=== PATIENT | female | born 1985 | race Two or more races ===

== ENCOUNTER 2023-01-28 22:10 | Emergency (ER) | payer MEDICAID, OTHER ==
[~2023-01-28] VITALS: Ht 170.2 cm; Wt 76.3 kg
[2023-01-28] MEDS ORDERED: MORPHINE SULFATE 4 MG/ML SYR/VIAL IV ONE (23:45)
[2023-01-28] MEDS ORDERED: ONDANSETRON HCL 4 MG/2 ML VIAL IV ONE (23:45)
[2023-01-29] MEDS: ONDANSETRON HCL 4 MG/2 ML VIAL IV PRN ×2 (06:52→17:07)
[2023-01-29] MEDS: MORPHINE SULFATE 4 MG/ML SYR/VIAL IV PRN ×2 (06:54→17:10)
[2023-01-29 17:10] VITALS: BP 133/85
== END 2023-01-29 17:59 | disposition short-term general hospital (02) ==
LOC: ER 22:14
DX: S72.111A Displaced fracture of greater trochanter of right femur, initial encounter for closed fracture (principal); W22.8XXA Striking against or struck by other objects, initial encounter; Y93.89 Activity, other specified; Y92.89 Other specified places as the place of occurrence of the external cause; Y99.8 Other external cause status; Z91.040 Latex allergy status; Z98.890 Other specified postprocedural states
CPT/HCPCS: 71045; 73700; 96374; 96375; 96376; 99285; J2270; J2405

== ENCOUNTER 2025-08-15 00:31 | Inpatient (IN) | payer MEDICAID, OTHER ==
[~2025-08-15] VITALS: Ht 162.6 cm; Wt 84.5 kg
--- NOTE | 2025-08-15 00:49 | ED.PDOC ---
HPI Comments HPI: Poor Historian. 40-year-old female presents to emergency department for one day history of nonspecific midsternal chest discomfort. Patient points with the hands that the pain is in her sternum and points to her epigastric and right upper quadrant area as well. Patient had an episode of nausea and vomiting nonbilious nonbloody shortly prior to arriving to the ED. Denies any other acute symptoms. Past Medical History: Denies any Past Surgical History: Tonsillectomy, breast augmentation, umbilical hernia repair, hip surgery REVIEW OF SYSTEMS: CONSTITUTIONAL: Denies acute: fever, diaphoresis, chills, generalized weakness. HEAD: Denies acute: headache, photophobia Eyes: Denies acute: Double vision, vision loss, eye pain, eye discharge. EARS: Denies acute: tinnitus, hearing loss, ear discharge, ear pain, THROAT: Denies acute: sore throat, swelling, difficulty swallowing , pain with swallowing, change in voice. NECK: Denies acute: neck pain, neck swelling, stiff neck. HEART: Denies acute : palpitations, LUNGS: Denies acute: SOB, wheezing, cough, hemoptysis ABDOMEN: Denies acute: , diarrhea, melena , hematemesis, hematochezia SKIN: Denies acute: rash, redness, lesions, itchiness. EXTREMITIES: Denies acute: calf pain, numbness, tingling, weakness, denies pain in extremity. Denies acute: Low back pain. Neuro: Denies acute: focal neurological deficit, motor or sensory focal neurological deficit, tremors, seizure like activity, confusion, dizziness, change in mental status, loss of bowel or bladder function, cauda equina like symptoms. : Denies acute: dysuria, hematuria, flank pain, increase in urinary frequency. PSYCH: Denies acute: hallucination, suicidal ideation, homicidal ideation. FEMALE: Denies acute: abnormal vaginal bleeding, foul odor, unusual discharge. PHYSICAL EXAM: General: ----mild---acute distress, awake and alert. Head: normocephalic, atraumatic. No raccoon's eyes, no brooks sign. Neck: supple, trachea is midline, no swelling. Throat: Normal phonation. Eyes:, no erythema, no purulent discharge, no proptosis, no icterus. Heart: regular rate, regular rhythm, no significant murmur appreciated. Lungs: no apparent respiratory distress, Able to speak in full sentences. No wheezing, no rhonchi, no crackles. No stridors Clear to auscultation bilaterally. Abdomen: Epigastric and mild right upper quadrant tender to palpation, non distended, soft, no guarding, no rebound, + bowel sounds. Neuro: Awake, Alert, oriented to name, self, situation, follows commands GCS=15. Speech is normal. Skin: no petechia, no purpura, no cyanosis, non-pale, not jaundice. Lower extremities: --no - Pitting edema no deformity, no focal swelling, no calf TTP. Makes eye contact. moves all four extremities. Face: no apparent facial droop. Ambulating in the ED independently. ED COURSE: DISCLAIMER: This medical document was created using an electronic medical record system with voice recognition software and computerized dictation system. Although this document has been carefully reviewed, there might still be some phonetic and typographical errors. Occasional wrong-word or "sound-alike" substitutions may have occurred due to the inherent limitations of voice recognition software. These areas are purely typographical due to imperfections of the software programs and do not reflect any compromise in the patient's medical care. Please read the chart carefully and recognize, using context, where these substitutions have occurred. 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 History Family History Family History: Reviewed,noncontributory to illness Social History Smoker: Non-Smoker Alcohol: Occasionally Drugs: Denies Drug Use Lives In: Home X-Ray, Labs, Meds, VS Vital Signs Date Time Temp Pulse Resp B/P (MAP) Pulse Ox O2 Delivery O2 Flow Rate FiO2 08/15/25 02:50 55 16 139/89 (106) 99 08/15/25 02:00 56 08/15/25 01:12 Room Air* 0 21 08/15/25 01:10 98.6 58 16 113/92 (99) 97 98.6 08/15/25 00:40 51 08/15/25 00:34 97.9 53 18 159/109 97 97.9 Lab Test 08/15/25 01:37 08/15/25 00:49 Range/Units Troponin I High Sensitivity < 3 L < 3 L </=34 ng/L White Blood Count 10.3 4.4-10.8 10^3/uL Red Blood Count 4.65 4.0-5.20 10^6/uL Hemoglobin 11.2 L 12.2-16.2 g/dL Hematocrit 34.9 L 36.0-46.0 % Mean Corpuscular Volume 75.1 L 80.0-100.0 fL Mean Corpuscular Hemoglobin 24.2 L 28.0-32.0 pg Mean Corpuscular Hemoglobin Concent 32.2 32.0-36.0 g/dL Red Cell Distribution Width 14.3 11.8-14.3 % Platelet Count 356 140-450 10^3/uL Mean Platelet Volume 7.0 6.9-10.8 fL Neutrophils (%) (Auto) 65.7 37.0-80.0 % Lymphocytes (%) (Auto) 24.7 10.0-50.0 % Monocytes (%) (Auto) 7.6 0.0-12.0 % Eosinophils (%) (Auto) 1.7 0.0-7.0 % Basophils (%) (Auto) 0.3 0.0-2.0 % Neutrophils # (Auto) 6.7 1.6-8.6 10 ^3/uL Lymphocytes # (Auto) 2.5 0.4-5.4 10 ^3/uL Monocytes # (Auto) 0.8 0-1.3 10 ^3/uL Eosinophils # (Auto) 0.2 0-0.8 10 ^3/uL Basophils # (Auto) 0 0-0.2 10 ^3/uL Nucleated Red Blood Cells 0.1 % Urine Color Colorless Yellow Urine Clarity Turbid H Clear Urine pH 5.0 5.0-9.0 Urine Specific [place] 1.021 1.001-1.035 Urine Protein Negative Negative Urine Ketones Negative Negative Urine Blood 3+ H Negative /uL Urine Nitrite Negative Negative Urine Bilirubin Negative Negative Urine Urobilinogen Normal Negative mg/dL Urine Leukocyte Esterase Negative Negative /uL Urine RBC 538 0 - 4 /hpf Urine Microscopic WBC 5 0-5 /HPF Urine Squamous Epithelial Cells Few <5 /hpf Urine Bacteria None seen None Seen /hpf Urine Yeast (Budding) Few None Seen /hpf Urine Glucose Normal Normal mg/dL Sodium Level 143 136-145 mmol/L Potassium Level 4.1 3.5-5.1 mmol/L Chloride Level 107 98-107 mmol/L Carbon Dioxide Level 29 20-31 mmol/L Anion Gap 7 5-15 Blood Urea Nitrogen 17 9-23 mg/dL Creatinine 0.73 0.550-1.02 mg/dL Glomerular Filtration Rate Calc 105 >90 mL/min BUN/Creatinine Ratio 23.3 H 10.0-20.0 Serum Glucose 100 74-106 mg/dL Lactic Acid Level 0.7 0.4-2.0 mmol/L Calcium Level 10.3 8.7-10.4 mg/dL Total Bilirubin 0.4 0.2-1.0 mg/dL Aspartate Amino Transferase (AST) 21 13-40 U/L Alanine Aminotransferase (ALT) 22 7-40 U/L Alkaline Phosphatase 82 46-116 U/L Total Protein 7.1 5.7-8.2 g/dL Albumin 4.2 3.2-4.8 g/dL Lipase 45 12-53 U/L Current Medications Medications (Trade) Dose Ordered Sig/Marybeth Route Start Time Stop Time Status Last Admin Sucralfate (Carafate Tab) 1 gm ONCE ONCE PO 08/15/25 01:00 08/15/25 01:01 DC 08/15/25 01:08 Pantoprazole Sodium (Protonix Tablet) 40 mg ONCE ONCE PO 08/15/25 01:00 08/15/25 01:01 DC 08/15/25 01:08 Lidocaine HCl (Xylocaine 2% Viscous) 10 ml ONCE ONCE PO 08/15/25 01:00 08/15/25 01:01 DC 08/15/25 01:[address] [address] Ph: [phone] DIAGNOSTIC IMAGING Diagnostic Imaging Report : [id number] Signed PATIENT: KARLO SOSA DENROSANNEACCT: [id number] UNIT: [id number] : 1985 LOC: ER ROOM / BED: / AGE / SEX: 40 / F ADM STATUS: REG ER SERVICE 003 ORDERING PHYSICIAN: TYLER MERLOS MD PROCEDURE(s): CXRP - CHEST PORTABLE REASON: CP ORDER NUMBER(s): [id number], ACCESSION NUMBER(s): [id number] CHEST RADIOGRAPH INDICATION: CP TECHNIQUE: Single frontal view of the chest was obtained COMPARISON: XY CHEST PORTABLE on DOS: 01/28/23 FINDINGS: Lines and Tubes: None Lungs: Clear Pleura: No effusion. No pneumothorax. Cardiomediastinal contours: Unremarkable Bones: Unremarkable IMPRESSION: 1. No acute disease. ATED BY: ARTEMIO ZAVALA MD DICTATED DATE/TIME: 08/15/25225 SIGNED BY: ARTEMIO ZAVALA MD SIGNED DATE/TIME: 08/15/25225 CC: Departure 1 Departure Time of Disposition: 03:06 Impression: Primary Impression: Chest pain Disposition: ADMITTED INPATIENT Condition: Guarded e-Prescriptions Pantoprazole Sodium Sesquihydr (Pantoprazole Sodium) 40 Mg Tab 40 MG PO DAILY@0600 for 30 Days, #30 TAB Prov: JOHANNE TALAMANTES RESIDENT 08/15/25 Discharged With: Self I personally scribed for GLADIS DEVINE DO ([email or web address]) on 08/15/25 at 15:56. Electronically submitted by Abimbola Holt ([email or web address]). I personally scribed for GLADIS DEVINE DO ([email or web address]) on 08/15/25 at 18:12. Electronically submitted by Abimbola Holt ([email or web address]). GLADIS DEVINE DO Aug 15, 2025 00:49
[2025-08-15] MEDS: SUCRALFATE 1 GM TAB PO ONE (01:08)
[2025-08-15] MEDS: LIDOCAINE VISCOUS 2% 15ML UD PO ONE (01:08)
[2025-08-15] MEDS: PANTOPRAZOLE 40 MG TAB PO ONE (01:08)
[2025-08-15 01:27] LABS: Nucleated Red Blood Cells % 0.1 %
[2025-08-15 01:29] LABS: Hematocrit 34.9 % (36.0-46.0); Hemoglobin 11.2 g/dL (12.2-16.2); Mean Corpuscular Hemoglobin 24.2 pg (28.0-32.0); Mean Corpuscular Volume 75.1 fL (80.0-100.0)
[2025-08-15 01:35] LABS: Alanine Aminotransferase 22 U/L (7-40); Albumin 4.2 g/dL (3.2-4.8); Alkaline Phosphatase 82 U/L (46-116); Anion Gap 7 (5-15); BUN/Creatinine Ratio 23.3 (10.0-20.0); Bilirubin, Total 0.4 mg/dL (0.2-1.0); Blood Urea Nitrogen 17 mg/dL (9-23); Calcium 10.3 mg/dL (8.7-10.4); Carbon Dioxide 29 mmol/L (20-31); Chloride 107 mmol/L (98-107); Glucose 100 mg/dL (74-106); Lipase 45 U/L (12-53); Potassium 4.1 mmol/L (3.5-5.1); Sodium 143 mmol/L (136-145); Total Protein 7.1 g/dL (5.7-8.2)
[2025-08-15 02:01] LABS: Urine Budding Yeast FEW /hpf (None Seen); Urine Protein, UAD Negative (Negative)
--- NOTE | 2025-08-15 02:01 | ECG ---
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
--- NOTE | 2025-08-15 02:28 | DVH ---
CHEST RADIOGRAPH INDICATION: CP TECHNIQUE: Single frontal view of the chest was obtained COMPARISON: XY CHEST PORTABLE on DOS: 01/28/23 FINDINGS: Lines and Tubes: None Lungs: Clear Pleura: No effusion. No pneumothorax. Cardiomediastinal contours: Unremarkable Bones: Unremarkable IMPRESSION: 1. No acute disease.
[2025-08-15] MEDS: NITROGLYCERIN 0.4 MG SL TAB SL ONE (03:24)
--- NOTE | 2025-08-15 03:44 | ECG ---
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
[2025-08-15 04:31] VITALS: PULSE 52; RESP 17; O2SAT 99
[2025-08-15] MEDS ORDERED: ONDANSETRON HCL 4 MG/2 ML VIAL IV PRN ×2 (05:00→05:15)
[2025-08-15] MEDS ORDERED: MORPHINE SULFATE INJ 2 MG/ml SYRG IV PRN ×2 (05:00→05:15)
[2025-08-15] MEDS ORDERED: NITROGLYCERIN 0.4 MG SL TAB SL PRN ×2 (05:00→05:15)
[2025-08-15] MEDS: ENOXAPARIN SOD 40 MG/0.4 ML SYRINGE SC ONE (05:15)
--- NOTE | 2025-08-15 05:20 | DVHHPRES ---
History of Present Illness Resident Creating Document: LEO YUSUF RESIDENT History of Present Illness This is a 41-year-old lady with past medical history of hypertension came to hospital due to chest pain for 1 day. She reports the pain substernal, radiating to the neck and right upper quadrant, squeezing in nature, 8/10 in intensity, worsening with lying on bed with no clear exacerbating factor. She also reports of nausea and vomiting. She denies fever, shortness of breaths, cough, or any recent chest/abdominal trauma. PMHx: Hypertension PSHx: No significant Family history: Mom had premature coronary artery disease (had heart attack at 30s) Social history: Denies smoking, drank occasionally, denies any other drug use. Home medication: Takes lisinopril off/on for blood pressure Allergic history: Lasix Patient seen and examined at the bedside. Patient is still complaining of chest pain. Review of Systems Review of Systems General: patient denies fever, fatigue, weaknes, sweating, any recent changes in appetite and weight HEENT: No headaches, visiual changes, hearing loss, tinnitus, nasal congestion and discharge, and sore throat. Cardiovascular reports chest pain Respiratory: No cough, and wheezing. Gastrointestinal: Reports nausea and vomiting Genitourinary: No dysuria, hematuria, discharge, frequency, urgency, nocturia, incontinence, and urinary retention. Endocrine: No heat or cold intolerance, polydipsia, polyuria, and polyphagia. Neurological: No dizziness, extremity weakness and numbness, tremors, gait disturbance, seizures, and memory impairment. Psychiatric: Denies depression, anxiety,or insomnia. Musculoskeletal: Denies neck pain, stiffness and swelling, back pain, muscle weakness, joint pain, stiffness, swelling, or limited range of motion. Skin: No rashes, itching, skin lesion, changes in hair, nail, skin texture and breast. Hematologic/Lymphatic: Denies easy bruising, bleeding tendencies, or lymph node enlargement. Allergies: Coded Allergies: Latex (Verified Allergy, Unknown, 01/28/23) Exam Vital Signs Vital Signs Date Time Temp Pulse Resp B/P (MAP) Pulse Ox O2 Delivery O2 Flow Rate FiO2 08/15/25 04:35 137/95 08/15/25 04:31 52 17 99 Room Air* 0 21 08/15/25 04:18 98.7 98.7 Exam General Appearance: Alert, Oriented X3, Cooperative, No acute distress HEENT: Atraumatic, PERRLA, EOMI, Mucous membrane moist/pink Respiratory: Clear to auscultation, Normal air movement Cardiovascular: Regular rate, Normal S1, Normal S2, No murmurs, no chest wall tenderness Abdominal: Normal bowel sounds, Soft, No tenderness, No hepatospenomegaly, No masses Extremities: No clubbing, No cyanosis, No edema, Normal pulses, No tenderness/swelling Skin: No rashes, No breakdown, No significant lesion Neuro: Normal gait, Normal speech, Strength at 5/5 X4 ext, Normal tone, Sensation intact, Cranial nerves 3-12 NL, Reflexes 2+ Psych/Mental Status: Mental status NL, Mood NL Labs/Xrays Labs Test 08/15/25 03:41 08/15/25 00:49 Range/Units Troponin I High Sensitivity < 3 L </=34 ng/L White Blood Count 10.3 4.4-10.8 10^3/uL Red Blood Count 4.65 4.0-5.20 10^6/uL Hemoglobin 11.2 L 12.2-16.2 g/dL Hematocrit 34.9 L 36.0-46.0 % Mean Corpuscular Volume 75.1 L 80.0-100.0 fL Mean Corpuscular Hemoglobin 24.2 L 28.0-32.0 pg Mean Corpuscular Hemoglobin Concent 32.2 32.0-36.0 g/dL Red Cell Distribution Width 14.3 11.8-14.3 % Platelet Count 356 140-450 10^3/uL Mean Platelet Volume 7.0 6.9-10.8 fL Neutrophils (%) (Auto) 65.7 37.0-80.0 % Lymphocytes (%) (Auto) 24.7 10.0-50.0 % Monocytes (%) (Auto) 7.6 0.0-12.0 % Eosinophils (%) (Auto) 1.7 0.0-7.0 % Basophils (%) (Auto) 0.3 0.0-2.0 % Neutrophils # (Auto) 6.7 1.6-8.6 10 ^3/uL Lymphocytes # (Auto) 2.5 0.4-5.4 10 ^3/uL Monocytes # (Auto) 0.8 0-1.3 10 ^3/uL Eosinophils # (Auto) 0.2 0-0.8 10 ^3/uL Basophils # (Auto) 0 0-0.2 10 ^3/uL Nucleated Red Blood Cells 0.1 % Urine Color Colorless Yellow Urine Clarity Turbid H Clear Urine pH 5.0 5.0-9.0 Urine Specific [place] 1.021 1.001-1.035 Urine Protein Negative Negative Urine Ketones Negative Negative Urine Blood 3+ H Negative /uL Urine Nitrite Negative Negative Urine Bilirubin Negative Negative Urine Urobilinogen Normal Negative mg/dL Urine Leukocyte Esterase Negative Negative /uL Urine RBC 538 0 - 4 /hpf Urine Microscopic WBC 5 0-5 /HPF Urine Squamous Epithelial Cells Few <5 /hpf Urine Bacteria None seen None Seen /hpf Urine Yeast (Budding) Few None Seen /hpf Urine Glucose Normal Normal mg/dL Sodium Level 143 136-145 mmol/L Potassium Level 4.1 3.5-5.1 mmol/L Chloride Level 107 98-107 mmol/L Carbon Dioxide Level 29 20-31 mmol/L Anion Gap 7 5-15 Blood Urea Nitrogen 17 9-23 mg/dL Creatinine 0.73 0.550-1.02 mg/dL Glomerular Filtration Rate Calc 105 >90 mL/min BUN/Creatinine Ratio 23.3 H 10.0-20.0 Serum Glucose 100 74-106 mg/dL Lactic Acid Level 0.7 0.4-2.0 mmol/L Calcium Level 10.3 8.7-10.4 mg/dL Total Bilirubin 0.4 0.2-1.0 mg/dL Aspartate Amino Transferase (AST) 21 13-40 U/L Alanine Aminotransferase (ALT) 22 7-40 U/L Alkaline Phosphatase 82 46-116 U/L Total Protein 7.1 5.7-8.2 g/dL Albumin 4.2 3.2-4.8 g/dL Lipase 45 12-53 U/L SEPSIS Sepsis Screen Date sepsis recognized/suspect: Aug 15, 2025 Time Sepsis recognized/suspect: 417 Recent Procedure: No On Antibiotic Therapy: No Respiratory Rate >20: No Heart Rate >90: No Temp<36 C (96.8 F) or >38.3 C: No SBP <90 or MAP <65 mmHG: Yes New Acute Mental Status Change: No Is the patient on CPAP, BIPAP,: No Physician Orders Chest Portable (08/15/25 00:39) Electrocardigram (08/15/25 03:39) Urine (08/15/25 ) Appeals Writer (08/15/25 ) Admit (08/15/25 04:59) Code Status (08/15/25 04:59) 2 Gm Sodium Diet (08/15/25 Breakfast) Echo 2d Mode Cardiac Dop (08/15/25 04:59) Oxygen By Nasal Cannula (08/15/25 04:59) Nitroglycerin Sublingual (Ntrostat Subli (08/15/25 05:00) Vital Signs Date Time Temp Pulse Resp B/P (MAP) Pulse Ox O2 Delivery O2 Flow Rate FiO2 08/15/25 04:35 137/95 08/15/25 04:31 52 17 99 Room Air* 0 21 08/15/25 04:18 98.7 57 14 146/92 (110) 99 98.7 08/15/25 04:01 65 08/15/25 03:43 51 08/15/25 03:24 139/89 08/15/25 02:50 55 16 139/89 (106) 99 08/15/25 02:00 56 08/15/25 01:12 Room Air* 0 21 08/15/25 01:10 98.6 58 16 113/92 (99) 97 98.6 08/15/25 00:40 51 08/15/25 00:34 97.9 53 18 159/109 97 97.9 Laboratory Tests Test 08/15/25 00:49 Lactic Acid Level 0.7 mmol/L (0.4-2.0) White Blood Count 10.3 10^3/uL (4.4-10.8) Medications Medications Dose Ordered Sig/Marybeth Route Start Time Stop Time Status Last Admin Dose Admin Lidocaine HCl 10 ml ONCE ONCE PO 08/15/25 01:00 08/15/25 01:01 DC 08/15/25 01:08 10 ML Nitroglycerin 0.4 mg ONCE ONCE SL 08/15/25 02:45 08/15/25 03:06 DC 08/15/25 03:24 0.4 MG Pantoprazole Sodium 40 mg ONCE ONCE PO 08/15/25 01:00 08/15/25 01:01 DC 08/15/25 01:08 40 MG Sucralfate 1 gm ONCE ONCE PO 08/15/25 01:00 08/15/25 01:01 DC 08/15/25 01:08 1 GM Assessment/Plan Assessment/Plan Possible unstable angina Chest pain, due to above Tension Medication nonadherence Obesity Serum Questionable ear infection Family history of premature coronary artery disease * EKGs shows sinus bradycardia with no significant ST or T-wave changes * Serial trop I is within normal limits Plan/recommendation: * Aspirin and atorvastatin * Pain management * Check echocardiogram * Lipid profile, TSH and UDS DIET: Cardiac diet DVT PROPHYLAXIS: Lovenox GI PROPHYLAXIS:: Protonix CODE STATUS: Goal of care discussed for more than 18 minutes, full code DISPOSITION: Telemetry Patient's status and plan discussed with the patient. Case discussed with Dr. Myers. Plan discussed with: Patient, Other My Orders Orders - LEO YUSUF Procedure Category Date Status Time Admit ADMIT 08/15/25 Transmitted 04:59 Code Status CODE 08/15/25 Transmitted 04:59 2 Gm Sodium Diet DIET 08/15/25 Transmitted Breakfast Echo 2d Mode Cardiac US 08/15/25 Logged DOP 04:59 Oxygen By Nasal RT 08/15/25 Transmitted Cannula 04:59 Nitroglycerin PHA 08/15/25 In Process Sublingual (Ntrostat 05:00 Visit Coding STANDARD RES Billing Provider: ANDREA MYERS MD Date of Service if different f: Aug 15, 2025 Common Visit Codes: 65963-JRHTCOW INP/OBS CARE (HIGH) Secondary Visit Codes: 55183-QUINANQV CARE PLAN 30 MINUTES LEO YUSUF Aug 15, 2025 05:20
[2025-08-15] MEDS: ATORVASTATIN 20 MG TAB PO ONE (05:47)
[2025-08-15] MEDS ORDERED: ACETAMINOPHEN 325 MG TAB PO SCH (06:00)
[2025-08-15] MEDS: ACETAMINOPHEN 325 MG TAB PO SCH (06:00)
[2025-08-15] MEDS: PANTOPRAZOLE 40 MG TAB PO SCH (06:25)
[2025-08-15 11:02] VITALS: BP 135/83; PULSE 66; RESP 16; TEMP 98.3; O2SAT 99
[2025-08-15 13:00] VITALS: BP 127/84; PULSE 67; RESP 16; TEMP 98.2; O2SAT 98
--- NOTE | 2025-08-15 13:53 | DVHDSRES ---
Discharge Summary Date of Admission Resident Creating Document: JOHANNE TALAMANTES RESIDENT Aug 15, 2025 at 04:59 Date of Discharge: Aug 15, 2025 Admitting Diagnosis Chest pain Labs/Diagnostic Data: Laboratory Results Test 08/15/25 03:41 08/15/25 00:49 Magnesium Level 2.0 mg/dL (1.6-2.6) Troponin I High Sensitivity < 3 ng/L (</=34) White Blood Count 10.3 10^3/uL (4.4-10.8) Red Blood Count 4.65 10^6/uL (4.0-5.20) Hemoglobin 11.2 g/dL (12.2-16.2) Hematocrit 34.9 % (36.0-46.0) Mean Corpuscular Volume 75.1 fL (80.0-100.0) Mean Corpuscular Hemoglobin 24.2 pg (28.0-32.0) Mean Corpuscular Hemoglobin Concent 32.2 g/dL (32.0-36.0) Red Cell Distribution Width 14.3 % (11.8-14.3) Platelet Count 356 10^3/uL (140-450) Mean Platelet Volume 7.0 fL (6.9-10.8) Neutrophils (%) (Auto) 65.7 % (37.0-80.0) Lymphocytes (%) (Auto) 24.7 % (10.0-50.0) Monocytes (%) (Auto) 7.6 % (0.0-12.0) Eosinophils (%) (Auto) 1.7 % (0.0-7.0) Basophils (%) (Auto) 0.3 % (0.0-2.0) Neutrophils # (Auto) 6.7 10 ^3/uL (1.6-8.6) Lymphocytes # (Auto) 2.5 10 ^3/uL (0.4-5.4) Monocytes # (Auto) 0.8 10 ^3/uL (0-1.3) Eosinophils # (Auto) 0.2 10 ^3/uL (0-0.8) Basophils # (Auto) 0 10 ^3/uL (0-0.2) Nucleated Red Blood Cells 0.1 % Urine Color Colorless (Yellow) Urine Clarity Turbid (Clear) Urine pH 5.0 (5.0-9.0) Urine Specific [place] 1.021 (1.001-1.035) Urine Protein Negative (Negative) Urine Ketones Negative (Negative) Urine Blood 3+ /uL (Negative) Urine Nitrite Negative (Negative) Urine Bilirubin Negative (Negative) Urine Urobilinogen Normal mg/dL (Negative) Urine Leukocyte Esterase Negative /uL (Negative) Urine RBC 538 /hpf (0 - 4) Urine Microscopic WBC 5 /HPF (0-5) Urine Squamous Epithelial Cells Few /hpf (<5) Urine Bacteria None seen /hpf (None Seen) Urine Yeast (Budding) Few /hpf (None Seen) Urine Glucose Normal mg/dL (Normal) Urine Test Negative (Negative) Sodium Level 143 mmol/L (136-145) Potassium Level 4.1 mmol/L (3.5-5.1) Chloride Level 107 mmol/L (98-107) Carbon Dioxide Level 29 mmol/L (20-31) Anion Gap 7 (5-15) Blood Urea Nitrogen 17 mg/dL (9-23) Creatinine 0.73 mg/dL (0.550-1.02) Glomerular Filtration Rate Calc 105 mL/min (>90) BUN/Creatinine Ratio 23.3 (10.0-20.0) Serum Glucose 100 mg/dL (74-106) Lactic Acid Level 0.7 mmol/L (0.4-2.0) Calcium Level 10.3 mg/dL (8.7-10.4) Total Bilirubin 0.4 mg/dL (0.2-1.0) Aspartate Amino Transferase (AST) 21 U/L (13-40) Alanine Aminotransferase (ALT) 22 U/L (7-40) Alkaline Phosphatase 82 U/L (46-116) B-Type Natriuretic Peptide 54.55 pg/mL (0-100) Total Protein 7.1 g/dL (5.7-8.2) Albumin 4.2 g/dL (3.2-4.8) Lipase 45 U/L (12-53) Other Laboratory Tests 08/15/25 00:49 Brief Hx & Hospital Course: This is a 41-year-old lady with past medical history of hypertension came to hospital due to chest pain for 1 day. She reports the pain substernal, radiating to the neck and right upper quadrant, squeezing in nature, 8/10 in intensity, worsening with lying on bed with no clear exacerbating factor. She also reports of nausea and vomiting. She denies fever, shortness of breaths, cough, or any recent chest/abdominal trauma. Patient required hospital admission for further evaluation and management of chest pain. So year EKG showed normal sinus rhythm, no ST changes and echocardiogram performed and troponins were negative BNP was within normal limit. Patient condition was likely from GERD avoid patient condition was improved, hemodynamically stable and in condition to be discharged home with healthy lifestyle modifications including diet and exercise. This has been discussed with the patient and agreed with the plan. Visit VD pain persists recurrent. General Appearance: Alert, Oriented X3, Cooperative, No acute distress HEENT: Atraumatic, PERRLA, EOMI, Mucous membrane moist/pink Respiratory: Clear to auscultation, Normal air movement Cardiovascular: Regular rate, Normal S1, Normal S2, No murmurs, no chest wall tenderness Abdominal: Normal bowel sounds, Soft, No tenderness, No hepatospenomegaly, No masses Extremities: No clubbing, No cyanosis, No edema, Normal pulses, No tenderness/swelling Skin: No rashes, No breakdown, No significant lesion Neuro: Normal gait, Normal speech, Strength at 5/5 X4 ext, Normal tone, Sensation intact, Cranial nerves 3-12 NL, Reflexes 2+ Psych/Mental Status: Mental status NL, Mood NL Condition at Discharge: Stable Final Diagnosis/Problems List Musculoskeletal chest pain and GERD Ruled out Unstable angina Chest pain,Ruled out ACS Medication nonadherence Obesity I Questionable ear infection Family history of premature coronary artery disease Discharge Disposition: Home Discharge Instruct/Medications Diet: Regular Activity: No Restrictions, As Tolerated Follow Up/Referral: PCP and Cardiology in outpatient Medications: Per EMR Discharge Statement: "Patient was advised to return to the ER or call 911 if any headaches, dizziness, shortness of breath, chest pain, abdominal pain, bleeding, fevers, or worsening of medical condition. Patient was counseled about treatment plan, medications, possible side effects, patientverbalized understanding. All questions were answered to the best of my ability. This discharge took greater then 30 minutes in planning, reviewing documentation, counseling the patient, and discussing with other team members." ASSESSMENT ASSESSMENT Assessment Chest pain, rule out ACS, likely from musculoskeletal/GERD Obesity type 1 Visit Coding STANDARD RES Billing Provider: CLARENCE SOLORIO MD Date of Service if different f: Aug 15, 2025 Common Visit Codes: 14253-WKN/OBS DISCH DAY >30min NOEL TLAAMANTESAnna MarieRODRIGUE RESIDENT Aug 15, 2025 13:53
[2025-08-15] MEDS ORDERED: PANT40T PO (13:54)
--- NOTE | 2025-08-15 14:22 | ECG ---
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
[2025-08-15] MEDS ORDERED: ATORVASTATIN 20 MG TAB PO SCH (22:00)
== END 2025-08-15 15:00 | disposition home or self-care (01) | DRG 392 ==
LOC: ER 00:31 → OVERFLOW 04:59 → ER 05:05
PROVIDERS: ADMIT Internal Medicine Geriatric Medicine; ATTEND Internal Medicine Geriatric Medicine
DX: K21.9 Gastro-esophageal reflux disease without esophagitis (principal); E66.811 Obesity, class 1; H66.93 Otitis media, unspecified, bilateral; I10 Essential (primary) hypertension; Z82.49 Family history of ischemic heart disease and other diseases of the circulatory system; Z91.040 Latex allergy status; Z91.148 Patient's other noncompliance with medication regimen for other reason; Z68.32 Body mass index [BMI] 32.0-32.9, adult; Z79.899 Other long term (current) drug therapy
CPT/HCPCS: 36415; 71045; 80053; 81001; 81025; 83605; 83690; 83735; 83880; 84484; 85025; 93005; 96372; G0378